=== PATIENT | female | born 1990 | race African-American/Black ===

== ENCOUNTER 2016-09-14 18:02 | Emergency (ER) | payer OTHER ==
[2016-09-14 18:20] VITALS: BP 142/86; PULSE 78; RESP 20; TEMP 98.1
--- NOTE | 2016-09-14 18:39 | ED ---
Female Urogenital HPI - General Chief complaint: Urogenital Stated complaint: Poss UTI Time Seen by Provider: 09/14/16 18:21 Source: patient, RN notes reviewed Mode of arrival: ambulatory Limitations: no limitations - History of Present Illness Initial comments: Patient is a 26-year-old female presents to the emergency room for evaluation of pain and burning during urination. Patient states symptoms began 2 days ago. Patient states she's also noticed little bit of blood in her urine as well. Patient states that she is due to start her menstrual cycle this month. Patient states having mild abdominal cramping. Patient denies any abnormal vaginal discharge or vaginal discomfort. Patient denies any vaginal lesions. Patient denies flank pain. Patient states she has a history of chlamydia when she was younger. Patient states she has been with the same intimate partner for the past few years and denies any history of STDs. Last Menstrual Period: 08/23/16 - Related Data Previous Rx's Medication Instructions Recorded Phenazopyridine HCl [Pyridium] 200 mg PO TID PRN #6 tablet 09/14/16 Sulfamethox-Tmp 800-160Mg [Bactrim 1 tab PO Q12HR 5 Days 09/14/16 DS 800-160 mg] Allergies Allergy/AdvReac Type Severity Reaction Status Date / Time No Known Allergies Allergy Verified 09/14/16 18:20 Review of Systems ROS Statement: Those systems with pertinent positive or pertinent negative responses have been documented in the HPI. ROS Other: All systems not noted in ROS Statement are negative. Past Medical History Past Medical History: No Reported History History of Any Multi-Drug Resistant Organisms: None Reported Past Surgical History: Breast Surgery, Section Past Psychological History: No Psychological Hx Reported Smoking Status: Current every day smoker Past Alcohol Use History: Occasional Past Drug Use History: None Reported General Exam - General Exam Comments Initial Comments: Sitting in exam room in no acute distress. Limitations: no limitations General appearance: alert, in no apparent distress Head exam: Present: atraumatic, normocephalic, normal inspection Eye exam: Present: normal appearance ENT exam: Present: normal exam Neck exam: Present: normal inspection Respiratory exam: Present: normal lung sounds bilaterally. Absent: respiratory distress Cardiovascular Exam: Present: regular rate, normal rhythm, normal heart sounds GI/Abdominal exam: Present: soft, normal bowel sounds. Absent: distended, tenderness, guarding, rebound, rigid Extremities exam: Present: normal inspection Back exam: Present: normal inspection Neurological exam: Present: alert, oriented X3, CN II-XII intact, normal gait Psychiatric exam: Present: normal affect, normal mood Skin exam: Present: warm, dry, intact, normal color. Absent: rash Course Vital Signs 09/14/16 09/14/16 18:18 19:05 Temperature 98.1 F 98.1 F Pulse Rate 78 78 Respiratory 20 20 Rate Blood Pressure 142/86 142/86 Medical Decision Making - Medical Decision Making Patient is a 26-year-old female presents to the emergency room for evaluation of pain and burning during urination. Urinalysis suspicious for urinary tract infection. Will place patient on antibiotics and have her follow-up with her OB /[employer]. Patient states she understands everything that was discussed with her. Return parameters discussed. Case discussed with Dr. Burks. - Lab Data Lab Results 09/14/16 09/14/16 Range/Units 18:29 18:29 Urine Color Yellow Urine Appearance Cloudy H (Clear) Urine pH 7.0 (5.0-8.0) Ur Specific [place] 1.018 (1.001-1.035) Urine Protein Trace H (Negative) Urine Glucose (UA) Negative (Negative) Urine Ketones Negative (Negative) Urine Blood Small H (Negative) Urine Nitrate Negative (Negative) Urine Bilirubin Negative (Negative) Urine Urobilinogen 3.0 (<2.0) mg/dL Ur Leukocyte Esterase Moderate H (Negative) Urine RBC 48 H (0-5) /hpf Urine WBC 108 H (0-5) /hpf Ur Squamous Epith Cells 1 (0-4) /hpf Urine Bacteria Few H (None) /hpf Urine Mucus Rare H (None) /hpf Urine Yeast (Budding) Occasional H (None) /hpf Urine HCG, Qual Not Detected (Not Detectd) Disposition Clinical Impression: Urinary tract infection Disposition: HOME SELF-CARE Condition: Good Instructions: Urinary Tract Infection in Women (ED) Additional Instructions: Take antibiotics as directed. Drink plenty of water. Please follow up with OB/ [employer] [employer] in 1-2 days. If any new symptom arises or symptoms worsen, return to ER as soon as possible. Prescriptions: Sulfamethox-Tmp 800-160Mg [Bactrim DS 800-160 mg] 1 tab PO Q12HR 5 Days Phenazopyridine HCl [Pyridium] 200 mg PO TID PRN #6 tablet PRN Reason: Pain Referrals: None,Stated [Primary Care Provider] - 1-2 days Time of Disposition: 18:48
[2016-09-14 18:42] LABS: Appearance,Urine Cloudy (Clear); Bacteria,Urine Few /hpf; Bilirubin,Urine Negative (Negative); Glucose,Urine (UA) Negative (Negative); Ketones,Urine Negative (Negative); Leukocyte Esterase,Urine Moderate (Negative); Mucus,Urine Rare /hpf; Nitrite,Urine Negative (Negative); Particle Count 6662; Protein,Urine Trace (Negative); RBC,Urine 48 /hpf (0-5); Specific Gravity,Urine 1.018 (1.001-1.035); Squamous Epithelial Cell,Urine 1 /hpf (0-4); UA Billing (MACRO vs. MICRO) MICRO; WBC,Urine 108 /hpf (0-5)
== END 2016-09-14 19:05 | disposition home or self-care (01) ==
LOC: EC 18:02
DX: N39.0 Urinary tract infection, site not specified (principal); F17.200 Nicotine dependence, unspecified, uncomplicated
CPT/HCPCS: 81001; 81025; 87077; 87086; 87186; 87491; 87591; 99283

== ENCOUNTER → 2016-12-01 | Outpatient (CLI) | payer BC, OTHER ==
[2016-12-01 09:26] LABS: Basophils # (A) 0.1 k/uL (0-0.2); Basophils % (A) 1 %; CH 27.9; CHCM 32.6; Eosinophils # (A) 0.3 k/uL (0-0.7); Eosinophils % (A) 4 %; HCT 43.3 % (34.0-46.0); HDW 2.33; HGB 13.9 gm/dL (11.4-16.0); Luc # (Auto) 0.18; Luc % (Auto) 2; Lymphocytes # (A) 2.8 k/uL (1.0-4.8); Lymphocytes % (A) 33 %; MCH 27.5 pg (25.0-35.0); MCHC 32.1 g/dL (31.0-37.0); MCV 85.8 fL (80.0-100.0); Mean Platelet Volume 6.1; Monocytes # (A) 0.5 k/uL (0-1.0); Monocytes % (A) 5 %; Neutrophils # (A) 4.8 k/uL (1.3-7.7); Neutrophils % (A) 55 %; RBC 5.04 m/uL (3.80-5.40); RDW 12.6 % (11.5-15.5); WBC 8.7 k/uL (3.8-10.6); WBC (Perox) 8.62
== END | disposition home or self-care (01) ==
LOC: LABPAT 08:59
PROVIDERS: ATTEND Obstetrics & Gynecology
DX: Z01.812 Encounter for preprocedural laboratory examination (principal)
CPT/HCPCS: 36415; 85025

== ENCOUNTER 2016-12-03 06:34 | Day surgery (SDC) | payer BC, OTHER ==
[2016-11-30 09:53] VITALS: BMI 27.8
[~2016-12-03 06:34] MED LIST: DEXAMETHASONE SOD PHOSPHATE 10 MG/ML 1 ML VIAL IV ONE; LIDOCAINE 1% 20 ML VIAL (10MG/ML) FOR IV START INTRADERMA PRN; ONDANSETRON 4 MG/2 ML VIAL IVP ONE; Pre Op ABX Message 1 EACH MISC MISCELLANE ONE; SCOPOLAMINE 1.5MG/72HR PATCH TRANSDERM ONE
[2016-12-03] MEDS: LACTATED RINGERS 1,000 ML IV SCH ×2 (07:03→11:47)
--- NOTE | 2016-12-03 07:51 | P.HPOB ---
History of Present Illness H&P Date: 12/03/16 Chief Complaint: Family planning Erinn is a 26-year-old female was completed her family planning inserted permanent sterilization. She has Mirena IUD however this Mirena IUD discuss her irregular bleeding and she would like to change to a permanent control she is therefore scheduled for laparoscopically tubal occlusion with Filshie clips. Risks/benefits/alternatives to this were discussed with the patient in detail and all questions were answered prior to proceeding to the operating room. Patient's past medical history is otherwise unremarkable. On physical exam vital signs are stable and afebrile. Heart regular, lungs clear, extremities without pain. Osteopathic exam is unremarkable. Pelvic exams unremarkable. Abdomen soft nontender positive bowel sounds are noted. Incision from sections noted. Assessment family planning Plan left scopic tubal occlusion with Filshie clips Past Medical History Past Medical History: No Reported History History of Any Multi-Drug Resistant Organisms: None Reported Past Surgical History: Breast Surgery, Section Additional Past Surgical History / Comment(s): fibroids removed from left breast Past Anesthesia/Blood Transfusion Reactions: Motion Sickness Past Psychological History: ADD/ADHD, Anxiety Smoking Status: Current every day smoker Past Alcohol Use History: Occasional Additional Past Alcohol Use History / Comment(s): smokes 1/2 PPD ,for 8 yrs Past Drug Use History: None Reported - Past Family History Mother Family Medical History: Unable to Obtain Additional Family Medical History / Comment(s): no family hx-adopted Medications and Allergies Allergies Allergy/AdvReac Type Severity Reaction Status Date / Time No Known Allergies Allergy Verified 12/03/16 06:56 Exam Osteopathic Statement: *. No significant issues noted on an osteopathic structural exam other than those noted in the History and Physical/Consult. - Vital Signs Vital signs: Vital Signs Temp Pulse Resp BP Pulse Ox 12/03/16 07:00 98 F 74 16 129/69 98
[2016-12-03] MEDS ORDERED: GLYCOPYRROLATE 0.2 MG/ML 2 ML VIAL ONE (07:53)
[2016-12-03] MEDS ORDERED: PROPOFOL 10 MG/ML 20 ML VIAL IV ONE (07:53)
[2016-12-03] MEDS ORDERED: fentaNYL (PF) 50 MCG/ML 2 ML AMP ONE (07:53)
[2016-12-03] MEDS ORDERED: SUCCINYLCHOLINE CHLORIDE 100 MG/5 ML SYR IV ONE (07:53)
[2016-12-03] MEDS ORDERED: LIDOCAINE 1% INJ 10MG/ML (20 ML MDV) ONE (07:53)
[2016-12-03] MEDS ORDERED: MIDAZOLAM 2 MG/2 ML VIAL ONE (07:53)
[2016-12-03] MEDS ORDERED: ROCURONIUM BROMIDE 10 MG/ML 10 ML VIAL IV ONE (07:53)
[2016-12-03] MEDS ORDERED: HYDROmorphone (PF) 1 MG/ML ONE (07:53)
[2016-12-03] MEDS ORDERED: BUPIVACAINE (PF) 0.25% 30 ML VIAL SQ ONE (07:53)
[2016-12-03] MEDS ORDERED: KETOROLAC 30 MG/ML 1 ML VIAL ONE (07:53)
[2016-12-03] MEDS ORDERED: NEOSTIGMINE 1 MG/ML 10 ML VIAL ONE (07:53)
--- NOTE | 2016-12-03 08:26 | P.OP ---
Date of Procedure: 12/03/16 Preoperative Diagnosis: Family planning Postoperative Diagnosis: Same with stage II endometriosis and adhesions Procedure(s) Performed: Removal of Mirena IUD, lap scopic tubal occlusion with Filshie clips, lysis of adhesions Implants: Anesthesia: ELLEA Surgeon: Michael Licona Estimated Blood Loss (ml): 5 IV fluids (ml): 800 Urine output (ml): 20 Pathology: none sent Condition: stable Disposition: same day Indications for Procedure: Operative Findings: Stage II endometriosis with small endometrium was noted on both ovaries. However as she was not consented for any treatment for these and they do not seem to be causing her any problems nothing was done about endometriomas. Also noted that she had some fluid in her pelvis which was suctioned out and bluntly dissected the left ovary away from the posterior uterus where it had formed adhesions. Description of Procedure: Patient was taken to the operating suite where a general anesthetic was found be adequate. She was prepped and draped in the normal sterile fashion and placed in dorsal following position. Initially a red rubber catheter was used to drain the bladder of urine. A speculum was inserted in the vagina and the IUD strings were grasped with a hemostat. It was removed without difficulty. Next the anterior lip of the cervix identified and grasped with a single-tooth tenaculum. [place] manipulator was then inserted without difficulty and the speculum was removed as was the catheter. Gloves were changed and attention was turned to the abdominal portion procedure where by approximately 3 mL of quarter percent Marcaine were injected periumbilically. Through this injected anesthetic a 5 mm skin incision was made and through this incision under direct visualization with an optical trocar and sleeve the camera was inserted. Once peritoneal placement was assured gas was left fully insufflate the abdomen and patient was placed in steep Trendelenburg position. Observations pelvis were noted. No abnormalities or endometriosis were noted anywhere other than in the pelvis. Liver area appeared clear as the remaining of the abdominal peritoneum. No endometriosis were noted on the bowel. However in the posterior cul-de-sac and the left ovary was adherent to the posterior uterine wall and this was bluntly dissected free. There was a significant quantity of clear fluid in the pelvis that was also removed with suction. As she again was not consented for any treatment for the endometriosis and prior she has not had any significant problems from it that we are aware of no treatment was provided. Multiple photos were taken. However now that there is better mobility of the left ovary I suspect she should not have any significant problems from this condition. Once this process was completed the right fallopian tube and left fallopian tube had a Filshie clip applied approximately 2 cm from uterine cornu. No bleeding is noted from the mesosalpinx therefore instruments were removed and gas allowed to expel the abdomen. 5 deep breaths were provided during this process. Once this was accomplished 4-0 Vicryl was used to close the incision subcuticularly and the patient was then taken to the recovery room in stable and satisfactory condition. Plan - Discharge Summary New Discharge Prescriptions: Acetaminophen-Codeine 300-30mg [Tylenol #3] 1 tab PO Q4H PRN #30 tablet PRN Reason: Pain Fluconazole [Diflucan] 150 mg PO DAILY #1 tab Discharge Medication List Acetaminophen-Codeine 300-30mg [Tylenol #3] 1 tab PO Q4H PRN #30 tablet [Rx] Fluconazole [Diflucan] 150 mg PO DAILY #1 tab 12/03/16 [Rx] Follow up Appointment(s)/Referral(s): Michael Licona DO [Doctor of Osteopathic Medicine] - 2 Weeks Patient Instructions/Handouts: *Surgery [facility] - Scopalamine Patch Instructions Activity/Diet/Wound Care/Special Instructions: No heavy lifting, limit stairs and driving and pelvic rest. If any high temperatures, heavy bleeding, or severe pain call my office Discharge Disposition: HOME SELF-CARE
[2016-12-03 08:36] VITALS: TEMP 97.2
[2016-12-03] MEDS: HYDROmorphone 1 MG/ML 1 ML SYRINGE IVP PRN ×4 (08:48→09:05)
[2016-12-03] MEDS ORDERED: MEPERIDINE 50 MG/ML SYRINGE IVP ONE (09:13)
[2016-12-03 09:32] VITALS: RESP 16
[2016-12-03] MEDS ORDERED: ONDANSETRON 4 MG/2 ML VIAL IVP ONE (10:58)
[2016-12-03 11:47] VITALS: BP 128/81; PULSE 67
== END 2016-12-03 12:16 | disposition home or self-care (01) ==
LOC: OR 06:34
PROVIDERS: ATTEND Obstetrics & Gynecology
DX: Z30.2 Encounter for sterilization (principal); N92.6 Irregular menstruation, unspecified; N80.1 Endometriosis of ovary; K66.0 Peritoneal adhesions (postprocedural) (postinfection); F17.200 Nicotine dependence, unspecified, uncomplicated
CPT/HCPCS: 81025; 58671; 58301; J2250; J1100; J2710; J2175; J2405; J2001; J3010; J1885; J1170; J0330; J2704

== ENCOUNTER → 2019-03-25 | Outpatient (CLI) | payer BC, OTHER ==
--- NOTE | 2019-03-25 11:08 | USB ---
Reason for exam: clinical finding. Indicated problem(s): other indicated problem in the left breast. Physical Findings: Nurse Summary: all soft, nodular, movable (nurse ts). US Breast LT Left complete breast ultrasound includes all four quadrants, the retroareolar region and axilla. Finding demonstrates no cystic or solid lesion seen. No suspicious sonographic finding. These results were verbally communicated with the patient and result sheet given to the patient on 03/25/19. ASSESSMENT: Negative, BI-RAD 1 RECOMMENDATION: Routine screening mammogram of both breasts at age 41. (or sooner if clinically indicated) Manage on a clinical basis with regard to upper inner quadrant pain.
== END | disposition home or self-care (01) ==
LOC: RADUSWWP 10:23
PROVIDERS: ATTEND Obstetrics & Gynecology
DX: N63.20 Unspecified lump in the left breast, unspecified quadrant (principal)

== ENCOUNTER → 2019-07-01 | Outpatient (CLI) | payer BC ==
[2019-07-01 13:00] LABS: HCT 41.1 % (34.0-46.0); HGB 13.5 gm/dL (11.4-16.0); MCH 28.7 pg (25.0-35.0); MCHC 32.8 g/dL (31.0-37.0); MCV 87.5 fL (80.0-100.0); Mean Platelet Volume 7.7; Platelet Count 325 k/uL (150-450); RDW 12.8 % (11.5-15.5); WBC 7.2 k/uL (3.8-10.6)
[2019-07-01 16:28] LABS: African American GFR (CKD) 100.8 (60.0-200.0); Albumin 4.6 g/dL (3.80-4.90); Albumin/Globulin Ratio 2.19 (1.60-3.17); Anion Gap 7.7 mmol/L (4.00-12.00); BUN/Creat Ratio 11.11 Ratio (12.00-20.00); Calcium 9.1 mg/dL (8.7-10.3); Carbon Dioxide 25.3 mmol/L (21.6-31.8); Chol/HDL Ratio 3.46; Globulin 2.1 g/dL (1.6-3.3); LDL Cholesterol,Calculated 106.2 mg/dL (0.0-131.0); Magnesium 2.1 mg/dL (1.5-2.4); Potassium 4.2 mmol/L (3.5-5.5); Total Bilirubin 0.6 mg/dL (0.3-1.2); Total Protein 6.7 g/dL (6.2-8.2); VLDL Calculation 11.8 mg/dL (5.00-40.00)
[2019-07-01 16:36] LABS: Ferritin 51.8 ng/mL (10.0-291.0)
== END | disposition home or self-care (01) ==
LOC: LABWHC1 10:45
PROVIDERS: ATTEND Family Medicine
DX: D64.9 Anemia, unspecified (principal); N92.6 Irregular menstruation, unspecified; F43.21 Adjustment disorder with depressed mood
CPT/HCPCS: 36415; 80053; 80061; 82306; 82728; 83735; 84443; 84481; 85027

== ENCOUNTER → 2021-01-11 | Outpatient (CLI) | payer BC, OTHER ==
--- NOTE | 2021-01-12 08:12 | US ---
EXAMINATION TYPE: US transvaginal DATE OF EXAM: 01/11/2021 COMPARISON: 05/10/2015 CLINICAL HISTORY: N93.8 Dysfunctional uterine bleeding. Passing clots and vomiting with on cycle for 6 months, , TECHNIQUE: TV. Transvaginal sonographic images Date of LMP: 12/19/2020 EXAM MEASUREMENTS: Uterus: 7.9 x 6.2 x 4.1 cm Endometrial Stripe: 1.1 cm Right Ovary: 3.2 x 2.8 x 1.8 cm Left Ovary: 4.2 x 5.7 x 4.1 cm 1. Uterus: Anteverted heterogeneous 2. Endometrium: wnl 3. Right Ovary: wnl 4. Left Ovary: 2 complex cysts, largest = 3.4 x 3.0 x 2.4cm 5. Bilateral Adnexa: wnl 6. Posterior cul-de-sac: wnl IMPRESSION: 1. The endometrial stripe is 1.1 cm, which is within normal limits for menstruating female. 2. Complex cyst within the left ovary, the largest of which measures 3.4 cm. This may represent an ev olving hemorrhagic cyst but is indeterminate. A follow-up sonographic study is recommended in 6 weeks .
== END | disposition home or self-care (01) ==
LOC: RADUSWWP 16:22
PROVIDERS: ATTEND Obstetrics & Gynecology
DX: N93.8 Other specified abnormal uterine and vaginal bleeding (principal); N83.202 Unspecified ovarian cyst, left side
CPT/HCPCS: 76830

== ENCOUNTER → 2021-02-27 | Outpatient (CLI) | payer BC, OTHER ==
[2021-02-27 10:56] LABS: Basophils # (A) 0.1 k/uL (0-0.2); Basophils % (A) 1 %; Eosinophils # (A) 0.3 k/uL (0-0.7); Eosinophils % (A) 4 %; HCT 46.6 % (34.0-46.0); HGB 14.6 gm/dL (11.4-16.0); Lymphocytes # (A) 2.3 k/uL (1.0-4.8); Lymphocytes % (A) 33 %; MCH 28.4 pg (25.0-35.0); MCHC 31.4 g/dL (31.0-37.0); MCV 90.5 fL (80.0-100.0); Mean Platelet Volume 6.7; Monocytes # (A) 0.3 k/uL (0-1.0); Monocytes % (A) 5 %; Neutrophils # (A) 3.8 k/uL (1.3-7.7); Neutrophils % (A) 55 %; Platelet Count 325 k/uL (150-450); RBC 5.15 m/uL (3.80-5.40); RDW 13.4 % (11.5-15.5)
== END | disposition home or self-care (01) ==
LOC: LABPAT 10:28
PROVIDERS: ATTEND Obstetrics & Gynecology
DX: Z01.812 Encounter for preprocedural laboratory examination (principal)
CPT/HCPCS: 36415; 85025

== ENCOUNTER → 2021-02-27 | Outpatient (CLI) | payer BC, OTHER ==
--- NOTE | 2021-02-27 11:11 | US ---
EXAMINATION TYPE: US pelvis complete transvag DATE OF EXAM: 02/27/2021 COMPARISON: US 01/11/2021 CLINICAL HISTORY: Left ovarian cyst N83.0. F/U left ovarian cyst TECHNIQUE: Transvaginal (TV) and Transabdominal (TA) . Transabdominal sonographic images of the pel vis were acquired. Transvaginal sonographic images were medically necessary to better assess the fol lowing anatomy: Entire pelvis Date of LMP: 02/23/2021 EXAM MEASUREMENTS: Uterus: 8.6 x 4.1 x 5.1 cm Endometrial Stripe: 0.8 cm Right Ovary: 4.1 x 3.5 x 3.0 cm Left Ovary: 4.7 x 4.2 x 2.6 cm 1. Uterus: Anteverted wnl 2. Endometrium: wnl 3. Right Ovary: Enlarged, polycystic in appearance 4. Left Ovary: Enlarged, polycystic in appearance, previous cyst appeared resolved 5. Bilateral Adnexa: wnl 6. Posterior cul-de-sac: wnl IMPRESSION: 1. Findings suggest enlarged ovaries correlate for polycystic ovarian disease. Previous complex cyst left ovary has resolved.
== END | disposition home or self-care (01) ==
LOC: RADUSWWP 09:51
PROVIDERS: ATTEND Obstetrics & Gynecology
DX: N83.202 Unspecified ovarian cyst, left side (principal)
CPT/HCPCS: 76830; 76856

== ENCOUNTER 2021-03-06 06:21 | Day surgery (SDC) | payer BC, OTHER ==
[2021-03-01 11:30] VITALS: BMI 30.3
--- NOTE | 2021-03-02 13:25 | P.HPOB ---
History of Present Illness H&P Date: 03/02/21 Chief Complaint: dystfunctional uterine bleeding Erinn is a 31-year-old female with dysfunctional uterine bleeding. She has had worsening of heavy painful periods over the last several months and she is unable to function when her bleeding is at its worst. She also has some pain with intercourse but predominantly her symptoms are heavy lengthy periods with passage of quarter size clots or larger. She is sitting for D&C hysteroscopy NovaSure. She has had a prior tubal ligation. Risks/benefits/alternatives to this procedure were reviewed the patient in detail and all questions were answered for her prior to proceeding to the operative room. Past Medical History Past Medical History: No Reported History History of Any Multi-Drug Resistant Organisms: None Reported Past Surgical History: Breast Surgery, Section Additional Past Surgical History / Comment(s): fibroids removed from left breast Past Anesthesia/Blood Transfusion Reactions: Motion Sickness Smoking Status: Current every day smoker - Past Family History Mother Family Medical History: Unable to Obtain Additional Family Medical History / Comment(s): no family hx-adopted Medications and Allergies Allergies Allergy/AdvReac Type Severity Reaction Status Date / Time No Known Allergies Allergy Verified 03/01/21 11:23 Exam Osteopathic Statement: *. No significant issues noted on an osteopathic structural exam other than those noted in the History and Physical/Consult. - OBG Physical Exam Breast: both: normal (no masses) Abdomen: bowel sounds normal, no diffuse tenderness, no bruit present, no guarding noted, no hepatomegaly, no splenomegaly, no mass Vulva: both: normal Vagina: normal moisture, no discharge Cervix: no lesion, no discharge Uterus: normal size, normal contour Adnexa: both: normal Anus/Rectum: normal perianal skin, no rectal mass, no hemorrhoids, heme negative
[~2021-03-06 06:21] MED LIST changes: -DEXAMETHASONE SOD PHOSPHATE 10 MG/ML 1 ML VIAL IV ONE; +DEXAMETHASONE SOD PHOSPHATE 4 MG/ML 1 ML VIAL IV ONE; +LACTATED RINGERS 1,000 ML IV SCH; +LIDOCAINE 1% (10MG/ML) FOR IV START INTRADERMA PRN; -LIDOCAINE 1% 20 ML VIAL (10MG/ML) FOR IV START INTRADERMA PRN; -ONDANSETRON 4 MG/2 ML VIAL IVP ONE
[2021-03-06] MEDS: ONDANSETRON 4 MG/2 ML VIAL IVP ONE ×2 (07:19→08:34)
[2021-03-06] MEDS ORDERED: fentaNYL (PF) 50 MCG/ML 2 ML AMP ONE (07:23)
[2021-03-06] MEDS ORDERED: KETOROLAC 15 MG/ML 1 ML VIAL ONE (07:23)
[2021-03-06] MEDS ORDERED: PROPOFOL 10 MG/ML 20 ML VIAL IV ONE (07:23)
[2021-03-06] MEDS ORDERED: MIDAZOLAM 2 MG/2 ML VIAL ONE (07:23)
[2021-03-06] MEDS ORDERED: LIDOCAINE 1% INJ 10MG/ML (20 ML MDV) ONE (07:23)
--- NOTE | 2021-03-06 07:59 | P.OP ---
Date of Procedure: 03/06/21 Preoperative Diagnosis: Menorrhagia Postoperative Diagnosis: Same Procedure(s) Performed: D&C with hysteroscopy and NovaSure Anesthesia: FAHEEM Surgeon: Michael Licona Estimated Blood Loss (ml): 5 Pathology: other (Uterine curettings) Condition: stable Disposition: same day Operative Findings: Pathology pending Description of Procedure: Patient was taken to the operating suite where a general anesthetic was found be adequate. She was prepped and draped in normal sterile fashion and placed in dorsal lithotomy position. Initially a weighted speculum was inserted in the vagina and the anterior lip of the cervix identified and grasped with an Allis clamp. Cervix was then dilated and sounded to 9 cm. Once completed sharp curettings of the endometrium were obtained following placement of the camera. Camera gave limited visualization however. Sharp curettings were all collected placed on Telfa sent to pathology for evaluation. NovaSure system was then brought in with length of 4.5 and a width of 4.2 it was tested and enabled. Once it passes patency test it was activated and burned for 1 minute 1 second. At conclusion the burn system was removed and camera was reinserted with excellent burn noted. All incidents were then removed. Sponge, lap, needle counts were correct 2. Patient was then taken to the recovery room in stable and satisfactory condition. Plan - Discharge Summary Discharge Rx Participant: No New Discharge Prescriptions: New Ibuprofen [Motrin] 600 mg PO Q6HR PRN #30 tab PRN Reason: Pain Discharge Medication List Ibuprofen [Motrin] 600 mg PO Q6HR PRN #30 tab 03/06/21 [Rx] Follow up Appointment(s)/Referral(s): Michael Licona DO [Doctor of Osteopathic Medicine] - 2 Weeks Activity/Diet/Wound Care/Special Instructions: No heavy lifting, limit stairs and driving, and pelvic rest. If any high temperatures, heavy bleeding, or severe pain call my office Discharge Disposition: HOME SELF-CARE
[2021-03-06 08:08] VITALS: TEMP 98
[2021-03-06] MEDS: HYDROmorphone 0.5 MG/0.5 ML SYRINGE IVP PRN ×2 (08:17→08:27)
[2021-03-06] MEDS ORDERED: ONDANSETRON 4 MG/2 ML VIAL ONE (08:30)
[2021-03-06] MEDS ORDERED: LACTATED RINGERS 1,000 ML IV ONE ×2 (08:34→11:00)
[2021-03-06 08:54] VITALS: RESP 16
[2021-03-06] MEDS ORDERED: HYDROcodone/APAP 5-325MG 1 EACH TAB ONE ×2 (09:35→10:47)
[2021-03-06] MEDS ORDERED: HYDROcodone/APAP 5-325MG 1 EACH TAB PO ONE ×2 (09:37→10:49)
[2021-03-06] MEDS ORDERED: LABETALOL 5 MG/ML VIAL MDV IV ONE ×2 (10:30→10:46)
[2021-03-06 11:22] VITALS: BP 135/92; PULSE 59
== END 2021-03-06 11:24 | disposition home or self-care (01) ==
LOC: OR 06:21
PROVIDERS: ATTEND Obstetrics & Gynecology
DX: N92.0 Excessive and frequent menstruation with regular cycle (principal); N93.8 Other specified abnormal uterine and vaginal bleeding; F17.210 Nicotine dependence, cigarettes, uncomplicated
CPT/HCPCS: 81025; 88305; 58120; J2250; J1100; J2405; J2001; J3010; J1885; J2704; J1170